=== PATIENT | male | born 1945 ===

== ENCOUNTER 2018-02-02 11:46 | Outpatient (CLI) | payer OTHER ==
[~2018-02-02 11:46] MED LIST: INTESTINEX680 MG PO; LISINOPRIL20 MG PO; PREVACID30 MG PO; TENORMIN25 MG PO; TRAM1TAB98 PO; WELLBUTRIN SR150 MG PO; ZANTAC300 MG PO
== END 2018-02-02 11:48 | disposition home or self-care (01) ==
LOC: RAD 11:46
DX: R07.89 Other chest pain (principal)

== ENCOUNTER 2020-03-16 02:40 | Outpatient (CLI) | payer OTHER | END 2020-03-16 15:33 | disposition home or self-care (01) | LOC: PPH VACUNA 02:40 | PROVIDERS: ATTEND Emergency Medicine Pediatric Emergency Medicine | DX: Z23 Encounter for immunization (principal) ==

== ENCOUNTER 2020-12-22 06:29 | Emergency (ER) | payer OTHER ==
[~2020-12-22] VITALS: Ht 170.2 cm; Wt 75.3 kg
[2020-12-22] MEDS ORDERED: PEPCID AC10 MG (06:46)
[2020-12-22] MEDS ORDERED: CIALIS2.5 MG (07:06)
== END 2020-12-22 11:13 | disposition home or self-care (01) ==
LOC: ER 06:29 → CPU-OBS 07:38 → ER 11:13
DX: R07.89 Other chest pain (principal); M94.0 Chondrocostal junction syndrome [Tietze]

== ENCOUNTER 2022-03-22 13:16 | Outpatient (CLI) | payer OTHER ==
[~2022-03-22 13:16] MED LIST changes: +CIALIS2.5 MG; +PEPCID AC10 MG
== END 2022-03-22 13:55 | disposition home or self-care (01) ==
LOC: SONOGRAMA 13:16
PROVIDERS: ATTEND General Practice
DX: E03.9 Hypothyroidism, unspecified (principal)